=== PATIENT | female | born 1995 | race Caucasian/White ===

== ENCOUNTER 2017-05-05 11:27 | Emergency (ER) | payer OTHER ==
[2017-05-05 11:56] VITALS: BP 111/72
--- NOTE | 2017-05-05 12:11 | UC ---
UC General HPI - HPI Summary HPI Summary: Was treated for a UTI last week, just finished her ABX, has white discharge, vaginal itching and burning, areas is red. denies any unprotected sex. - History of Current Complaint Chief Complaint: [facility] Stated Complaint: PERSONAL Time Seen by Provider: 05/05/17 11:50 Hx Obtained From: Patient Hx Last Menstrual Period: 04/11/17 Onset/Duration: Sudden Onset, Lasting Days Timing: Constant Onset Severity: Moderate Current Severity: Moderate - Allergy/Home Medications Allergies/Adverse Reactions: Allergies Allergy/AdvReac Type Severity Reaction Status Date / Time Penicillins Allergy See Comment Verified 05/05/17 11:56 Home Medications: Home Medications Diphenhydramine HCl [Benadryl Allergy 25 MG CAP] 50 mg PO ONCE PRN 05/05/17 [ History Confirmed 05/05/17] Miconazole Nitrate Vaginal [Monistat 3] 4 % VA DAILY PRN 05/05/17 [History Confirmed 05/05/17] PMH/Surg Hx/FS Hx/Imm Hx Previously Healthy: Yes - Surgical History Surgical History: None - Family History Known Family History: Negative: Cardiac Disease, Hypertension - Social History Occupation: Student Alcohol Use: None Substance Use Type: None Smoking Status (MU): Never Smoked Tobacco Review of Systems Constitutional: Negative Skin: Rash Eyes: Negative ENT: Negative Respiratory: Negative Cardiovascular: Negative Gastrointestinal: Negative Genitourinary: Negative, Vaginal/Penile Itching, Vaginal/Penile Discharge Motor: Negative Neurovascular: Negative Musculoskeletal: Negative Neurological: Negative Psychological: Negative Is Patient Immunocompromised?: No All Other Systems Reviewed And Are Negative: Yes Physical Exam Triage Information Reviewed: Yes Appearance: Well-Appearing, Well-Nourished, Pain Distress Vital Signs: Initial Vital Signs Temp 99 F 05/05/17 11:47 Pulse 78 05/05/17 11:47 Resp 18 05/05/17 11:47 BP 111/72 05/05/17 11:47 Vital Signs Reviewed: Yes Eye Exam: Normal ENT Exam: Normal Dental Exam: Normal Neck exam: Normal Respiratory Exam: Normal Cardiovascular Exam: Normal Abdominal Exam: Normal Abdomen Description: Positive: Nontender, No Organomegaly, Soft Bowel Sounds: Positive: Present Musculoskeletal Exam: Normal Musculoskeletal: Positive: Strength Intact, ROM Intact, No Edema Neurological Exam: Normal Psychological Exam: Normal Skin: Positive: rashes - red irritation of cynthia perineum Course/Dx - Course Course Of Treatment: hx obtained, exam performed ,meds reviewed, treated fo vaginitis - Differential Dx - Multi-Symptom Provider Diagnoses: vagintitis Discharge - Discharge Plan Condition: Stable Disposition: HOME Prescriptions: Fluconazole [Diflucan 150 MG (NF)] 150 mg PO WEEKLY #2 tab Patient Education Materials: Vaginitis (ED) Additional Instructions: 1. take the medication as prescribed. 2. No soap to the area, use the coconut oil multiple times a day to relieve the itching and burning. 3. Follow up with any increase in symtpoms
== END 2017-05-05 12:15 | disposition home or self-care (01) ==
LOC: UCCORT 11:27
DX: N76.0 Acute vaginitis (principal); Z88.0 Allergy status to penicillin
CPT/HCPCS: 99202; G0463